=== PATIENT | female | born 1940 | race Caucasian/White ===

== ENCOUNTER 2016-10-31 09:09 | Day surgery (SDC) | payer MEDICARE, OTHER ==
[2016-10-30 15:41] LABS: Hematocrit 43.7 % (36.0-46.0); Hemoglobin 14.6 g/dL (12.2-16.2); Mean Corpuscular Hemoglobin 31.9 pg (28.0-32.0); Mean Corpuscular Hgb Conc. 33.4 g/dL (32.0-36.0); Mean Corpuscular Volume 95.3 fL (80.0-100.0); Mean Platelet Volume 9.6 fL (7.4-10.4); Platelet Count (auto) 240 10^3/uL (140-450); Red Cell Distribution Width 14.1 % (11.6-16.0); SUSPECT VIEW TRANSMISSION; White Blood Cell 4.7 10^3/uL (4.4-10.8)
[2016-10-30 15:45] LABS: Urine Bilirubin Negative (Negative); Urine Color Yellow (Yellow); Urine Glucose Normal (Normal); Urine Ketone Negative (Negative); Urine Nitrite Negative (Negative); Urine RBC 135 /hpf (0 - 4); Urine Squamous Epithelial Cell MOD /hpf (<5); Urine Urobilinogen Normal (Negative); Urine WBC Clumps PRESENT /hpf (None Seen)
[2016-10-30 16:09] LABS: Albumin 3.6 g/dL (3.4-5.0); BUN/Creatinine Ratio 11.8; Bilirubin, Total 0.5 mg/dL (0.2-1.0); Calcium 9.3 mg/dL (8.5-10.1); Potassium 3.5 mmol/L (3.5-5.1)
[2016-10-30 16:15] LABS: Metamyelocytes % 0; Myelocytes % 0; Promyelocytes % 0; Reactive Lymphocytes 0
[2016-10-30 16:21] LABS: Urine Blood 2+ /uL (Negative)
[2016-10-30 16:24] LABS: INR 1.04 (0.9-1.15); Partial Thromboplastin Time 28.2 sec (22.64-33.71); Prothrombin Time 11.2 sec (9.37-12.3)
[2016-10-30 16:56] LABS: Giant Platelets Few; Large Platelets FEW
[2016-10-30 16:57] LABS: Platelet Estimate Adequa
[~2016-10-31] VITALS: Ht 165.1 cm; Wt 110.2 kg
[~2016-10-31 09:09] MED LIST: ASPI-231 PO; FLUT100I IN; FURO80TA3 PO; HYDR-531 PO; MELO-86 PO; MET50T PO; MORP30TA PO; MULTTAB99 PO; VENL75TA43 PO; ZOLP10TA PO
[2016-10-31] MEDS ORDERED: ceFAZolin 1GM/50ML D5W 50 ML IV ONE (09:34)
[2016-10-31] MEDS ORDERED: fentaNYL CITRATE 100 MCG/2 ML VL ONE (11:10)
[2016-10-31] MEDS ORDERED: MIDAZOLAM HCL 1MG/1ML-2 ML VIAL ONE (11:10)
[2016-10-31] MEDS ORDERED: DEXAMETHASONE SOD PHOS 10MG/1ML VIAL INJ ONE (11:45)
[2016-10-31] MEDS ORDERED: MIDAZOLAM HCL 1MG/1ML-2 ML VIAL IV PRN (11:45)
[2016-10-31] MEDS ORDERED: MORPHINE SULF INJ 2 MG/ML SYRINGE 1ML IV PRN (11:45)
[2016-10-31] MEDS ORDERED: ePHEDrine SULFATE 50 MG/ML AMP IV PRN (11:45)
[2016-10-31] MEDS ORDERED: PROPOFOL 10 MG/ML 20 ML IV ONE (11:45)
[2016-10-31] MEDS ORDERED: LABETALOL HCL 5 MG/ML 4ML SYRINGE IV PRN (11:45)
[2016-10-31] MEDS ORDERED: ONDANSETRON HCL 4 MG/2 ML VIAL IV ONE (11:45)
[2016-10-31] MEDS ORDERED: KETOROLAC TROMETH 30 MG/ML 1ML VIAL IV ONE (11:45)
[2016-10-31] MEDS ORDERED: HYDROmorphone HCL 2 MG/ML VL IV PRN (11:45)
[2016-10-31 12:36] VITALS: BP 134/59
== END 2016-10-31 12:38 | disposition home or self-care (01) ==
LOC: SUR 09:09
PROVIDERS: ATTEND Urology
DX: N20.1 Calculus of ureter (principal); J44.9 Chronic obstructive pulmonary disease, unspecified; J43.9 Emphysema, unspecified; I48.91 Unspecified atrial fibrillation; I25.10 Atherosclerotic heart disease of native coronary artery without angina pectoris; E66.01 Morbid (severe) obesity due to excess calories; Z68.41 Body mass index [BMI] 40.0-44.9, adult; Z90.49 Acquired absence of other specified parts of digestive tract
CPT/HCPCS: 36415; 50590; 52310; 80053; 81001; 85007; 85027; 85610; 85730; J0690; J1100; J2250; J2704; J3010; J7030

== ENCOUNTER → 2018-05-09 | Outpatient (CLI) | payer MEDICARE, OTHER ==
[~2018-05-09] MED LIST changes: -MELO-86 PO; +MELO1TAB56 PO
[2018-05-09 11:57] LABS: Hematocrit 40.4 % (36.0-46.0); Hemoglobin 13.6 g/dL (12.2-16.2); Mean Corpuscular Hemoglobin 31.7 pg (28.0-32.0); Mean Corpuscular Hgb Conc. 33.6 g/dL (32.0-36.0); Mean Corpuscular Volume 94.4 fL (80.0-100.0); Platelet Count (auto) 163 10^3/uL (140-450); Red Blood Cells 4.28 10^6/uL (4.0-5.20); Red Cell Distribution Width 13.8 % (11.8-14.3); Urine Bacteria FEW /hpf (None Seen); Urine Blood Negative /uL (Negative); Urine Specific Gravity 1.011 (1.001-1.035); Urine WBC 32 /hpf (0 - 5); White Blood Cell 4.6 10^3/uL (4.4-10.8)
[2018-05-09 12:09] LABS: Albumin 3.6 g/dL (3.4-5.0); Calcium 8.7 mg/dL (8.5-10.1); Potassium 3.6 mmol/L (3.5-5.1)
[2018-05-09 12:11] LABS: Band Neutrophils % (manual) 0; Basophils % (manual) 0 (0.0-2.0); Blast Cells 0; Eosinophils % (manual) 0 (0-7); Metamyelocytes % 0; Myelocytes % 0; Promyelocytes % 0; Reactive Lymphocytes 0
[2018-05-09 12:13] LABS: Bilirubin, Total 0.3 mg/dL (0.2-1.0); Total Protein 7.7 g/dL (6.4-8.2)
[2018-05-09 12:35] LABS: Lymphocytes % (manual) 41 (10.0-50.0); Monocytes % (manual) 16 (0-12)
== END | disposition home or self-care (01) ==
LOC: LAB 11:20
PROVIDERS: ATTEND Nurse Practitioner
DX: I10 Essential (primary) hypertension (principal); Z79.899 Other long term (current) drug therapy
CPT/HCPCS: 36415; 80053; 80061; 81001; 85007; 85027

== ENCOUNTER 2021-04-04 20:21 | Inpatient (IN) | payer MEDICARE, OTHER ==
[~2021-04-04] VITALS: Ht 170.2 cm; Wt 98.3 kg
[~2021-04-04 20:21] MED LIST changes: -ASPI-231 PO; +ASPI1TAB20 PO
[2021-04-04] MEDS ORDERED: dilTIAZem 25 MG/5 ML VIAL IV ONE (21:15)
[2021-04-04] MEDS ORDERED: dilTIAZem 125mg/125ml BAG KIT 125 ML IV ONE (21:15)
[2021-04-04 21:24] LABS: Hematocrit 47.8 % (36.0-46.0); Hemoglobin 16.2 g/dL (12.2-16.2); Mean Corpuscular Hemoglobin 30.8 pg (28.0-32.0); Mean Corpuscular Volume 90.8 fL (80.0-100.0); Red Blood Cells 5.26 10^6/uL (4.0-5.20); Red Cell Distribution Width 14.2 % (11.8-14.3); White Blood Cell 4.2 10^3/uL (4.4-10.8)
[2021-04-04 21:33] LABS: Basophils % (manual) 0 (0.0-2.0); Blast Cells 0; Eosinophils % (manual) 0 (0-7); Metamyelocytes % 0; Myelocytes % 0; Promyelocytes % 0; Reactive Lymphocytes 0
[2021-04-04 21:36] LABS: Albumin 3.1 g/dL (3.4-5.0); Anion Gap 11 (5-15); Blood Urea Nitrogen 16 mg/dL (7-18); Calcium 8.8 mg/dL (8.5-10.1); Carbon Dioxide 24 mmol/L (21-32); Chloride 96 mmol/L (98-107); Glucose 118 mg/dL (74-106); Sodium 131 mmol/L (136-145)
[2021-04-04 21:39] LABS: Alanine Aminotransferase 18 U/L (13-56); Alkaline Phosphatase 49 U/L (45-117); Aspartate Aminotransferase 30 U/L (15-37); BUN/Creatinine Ratio 17.4; Bilirubin, Total 0.4 mg/dL (0.2-1.0); GFR African American 75 mL/min; GFR Non-African American 62 mL/min; Total Protein 8.1 g/dL (6.4-8.2)
[2021-04-04 21:41] LABS: INR 1.09 (0.9-1.15); Partial Thromboplastin Time 28.8 sec (23.6-33.0)
[2021-04-04 22:09] LABS: Potassium 2.6 mmol/L (3.5-5.1)
[2021-04-04] MEDS ORDERED: MORPHINE SULFATE INJECTION 2 MG/ML SYRG IV PRN (22:15)
[2021-04-04] MEDS ORDERED: ACETAMINOPHEN 325 MG TAB PO PRN (22:15)
[2021-04-04] MEDS ORDERED: NITROGLYCERIN 0.4 MG SL TAB SL PRN (22:15)
[2021-04-04 22:40] LABS: Band Neutrophils % (manual) 19; Lymphocytes % (manual) 11 (10.0-50.0)
[2021-04-04 22:41] LABS: Monocytes % (manual) 51 (0-12)
[2021-04-04] MEDS ORDERED: POTASSIUM CHL 20MEQ/100ML 100 ML IV ONE (22:45)
[2021-04-04] MEDS ORDERED: POTASSIUM CHL 20 Meq TABLET PO ONE (23:00)
[2021-04-04 23:23] LABS: Urine Bacteria MANY /hpf (None Seen); Urine Blood 2+ /uL (Negative); Urine Mucus FEW (None Seen); Urine Specific Gravity 1.016 (1.001-1.035); Urine WBC 126 /hpf (0 - 5); Urine WBC Clumps PRESENT /hpf (None Seen)
[2021-04-05] MEDS: dilTIAZem 125mg/125ml BAG KIT 125 ML IV SCH ×5 (02:07→04:53)
[2021-04-05] MEDS: HYDROcodone-ACET 5/325MG TAB PO PRN ×5 (02:13→22:13)
[2021-04-05] MEDS: cefTRIAXone 1GM/50ML D5W 50 ML IV SCH (03:00)
[2021-04-05 04:56] LABS: Hematocrit 46.8 % (36.0-46.0); Mean Corpuscular Hemoglobin 30.9 pg (28.0-32.0); Mean Corpuscular Hgb Conc. 34.1 g/dL (32.0-36.0); Mean Corpuscular Volume 90.5 fL (80.0-100.0); Red Blood Cells 5.17 10^6/uL (4.0-5.20); Red Cell Distribution Width 14.2 % (11.8-14.3); White Blood Cell 3.7 10^3/uL (4.4-10.8)
[2021-04-05 05:13] LABS: BUN/Creatinine Ratio 23.5; Calcium 8.3 mg/dL (8.5-10.1)
[2021-04-05 05:14] LABS: Basophils % (manual) 0 (0.0-2.0); Blast Cells 0; Eosinophils % (manual) 0 (0-7); Myelocytes % 0; Promyelocytes % 0; Reactive Lymphocytes 0
[2021-04-05 05:26] LABS: Potassium 2.3 mmol/L (3.5-5.1)
[2021-04-05] MEDS: POTASSIUM CHL 20 Meq TABLET PO ONE ×2 (05:38→05:39)
[2021-04-05 08:41] LABS: Band Neutrophils % (manual) 17; Lymphocytes % (manual) 23 (10.0-50.0); Metamyelocytes % 2; Monocytes % (manual) 32 (0-12)
[2021-04-05] MEDS ORDERED: ZINC SULFATE 220mg CAP or TAB PO SCH (10:00)
[2021-04-05] MEDS: POTASSIUM EFFERVESENT TAB 25 MEQ PO SCH (10:00)
[2021-04-05] MEDS ORDERED: SOD CHL 0.45% WITH 20MEQ KCL 1,000 ML IV ONE (10:00)
[2021-04-05] MEDS: ONDANSETRON HCL 4 MG/2 ML VIAL IV PRN ×4 (10:15→22:13)
[2021-04-05] MEDS ORDERED: OXYB10TA14 PO (10:20)
[2021-04-05] MEDS: ASPirin 81 mg TAB PO SCH (10:57)
[2021-04-05] MEDS: METOPROLOL TARTRATE 50 MG TAB PO SCH ×2 (10:58→20:40)
[2021-04-05] MEDS: PANTOPRAZOLE 40 MG TAB PO SCH (10:59)
[2021-04-05] MEDS: ENOXAPARIN SOD 40 MG/0.4 ML SYRINGE SC SCH (10:59)
[2021-04-05] MEDS: ASCORBIC ACID 500 MG TAB PO SCH (10:59)
[2021-04-05] MEDS ORDERED: ALBUTEROL SULF HFA 90MCG INH 200DOSE IN PRN (11:00)
[2021-04-05] MEDS ORDERED: REMDESIVIR PER PHARMACY 0 ML IV SCH (11:00)
[2021-04-05 11:40] LABS: Hematocrit 47.6 % (36.0-46.0); Hemoglobin 16.4 g/dL (12.2-16.2); Mean Corpuscular Hemoglobin 31.4 pg (28.0-32.0); Mean Corpuscular Hgb Conc. 34.5 g/dL (32.0-36.0); Mean Corpuscular Volume 91.2 fL (80.0-100.0); Red Blood Cells 5.22 10^6/uL (4.0-5.20); Red Cell Distribution Width 14.3 % (11.8-14.3); White Blood Cell 3.4 10^3/uL (4.4-10.8)
[2021-04-05] MEDS: DexAMETHasone SOD PHOS 10MG/1ML VIAL INJ IV SCH (11:45)
[2021-04-05 11:46] LABS: Basophils % (manual) 0 (0.0-2.0); Blast Cells 0; Metamyelocytes % 0; Myelocytes % 0; Promyelocytes % 0; Reactive Lymphocytes 0
[2021-04-05 11:53] LABS: Albumin 2.8 g/dL (3.4-5.0); Calcium 8.4 mg/dL (8.5-10.1); Magnesium 2.3 mg/dL (1.6-2.6)
[2021-04-05 11:58] LABS: Bilirubin, Total 0.5 mg/dL (0.2-1.0); Total Protein 7.8 g/dL (6.4-8.2)
[2021-04-05] MEDS: DOXYCYCLINE 100 MG TAB/CAP PO SCH ×2 (12:00→20:41)
[2021-04-05] MEDS ORDERED: REMDESIVIR 200 MG in NS 210ml LOADING DOSE ADULT IV ONE (12:00)
[2021-04-05] MEDS: CHOLECALCIFEROL (VITD3) 2,000 UNIT CAP/TAB PO SCH (12:00)
[2021-04-05 12:04] LABS: Thyroid Stimulating Hormone 0.73 uIU/mL (0.358-3.74)
[2021-04-05 12:24] LABS: Band Neutrophils % (manual) 4; Eosinophils % (manual) 2 (0-7); Lymphocytes % (manual) 21 (10.0-50.0); Monocytes % (manual) 35 (0-12)
[2021-04-05] MEDS: POTASSIUM CHL 20MEQ/100ML 100 ML IV SCH ×5 (12:35→19:00)
[2021-04-05 12:36] LABS: Urine Bacteria MANY /hpf (None Seen); Urine Blood 2+ /uL (Negative); Urine Budding Yeast FEW /hpf (None Seen); Urine Specific Gravity 1.009 (1.001-1.035); Urine WBC 72 /hpf (0 - 5)
[2021-04-05 12:38] LABS: Potassium 2.7 mmol/L (3.5-5.1)
[2021-04-05 12:59] LABS: CRP High Sensitivity 1.74 mg/dL (< 0.3)
[2021-04-06] MEDS: HYDROcodone-ACET 5/325MG TAB PO PRN ×5 (02:15→19:42)
[2021-04-06 05:00] VITALS: BP 138/69
[2021-04-06 06:50] LABS: Albumin 2.6 g/dL (3.4-5.0); Calcium 8.5 mg/dL (8.5-10.1); Potassium 3.7 mmol/L (3.5-5.1)
[2021-04-06 06:59] LABS: Hematocrit 45.5 % (36.0-46.0); Hemoglobin 15.2 g/dL (12.2-16.2); Mean Corpuscular Hemoglobin 30.6 pg (28.0-32.0); Mean Corpuscular Hgb Conc. 33.4 g/dL (32.0-36.0); Mean Corpuscular Volume 91.5 fL (80.0-100.0); Red Blood Cells 4.98 10^6/uL (4.0-5.20); Red Cell Distribution Width 14.1 % (11.8-14.3); White Blood Cell 2.6 10^3/uL (4.4-10.8)
[2021-04-06 07:03] LABS: Bilirubin, Total 0.4 mg/dL (0.2-1.0); Total Protein 7.2 g/dL (6.4-8.2)
[2021-04-06 07:20] LABS: Basophils % (manual) 0 (0.0-2.0); Blast Cells 0; Eosinophils % (manual) 0 (0-7); Metamyelocytes % 0; Myelocytes % 0; Promyelocytes % 0
[2021-04-06 09:00] VITALS: BP 140/70
[2021-04-06] MEDS: ASPirin 81 mg TAB PO SCH (09:56)
[2021-04-06] MEDS: ZINC SULFATE 220mg CAP or TAB PO SCH (09:56)
[2021-04-06] MEDS: cefTRIAXone 1GM/50ML D5W 50 ML IV SCH (09:56)
[2021-04-06] MEDS: DexAMETHasone SOD PHOS 10MG/1ML VIAL INJ IV SCH (09:56)
[2021-04-06] MEDS: POTASSIUM EFFERVESENT TAB 25 MEQ PO SCH ×2 (09:57→10:00)
[2021-04-06] MEDS: PANTOPRAZOLE 40 MG TAB PO SCH (09:57)
[2021-04-06] MEDS: METOPROLOL TARTRATE 50 MG TAB PO SCH ×2 (09:57→21:54)
[2021-04-06] MEDS: DOXYCYCLINE 100 MG TAB/CAP PO SCH ×2 (09:58→21:54)
[2021-04-06] MEDS: ENOXAPARIN SOD 40 MG/0.4 ML SYRINGE SC SCH (09:58)
[2021-04-06] MEDS: CHOLECALCIFEROL (VITD3) 2,000 UNIT CAP/TAB PO SCH (09:58)
[2021-04-06] MEDS: ASCORBIC ACID 500 MG TAB PO SCH (09:58)
[2021-04-06 10:24] LABS: Band Neutrophils % (manual) 1; Lymphocytes % (manual) 13 (10.0-50.0); Monocytes % (manual) 27 (0-12); Reactive Lymphocytes 1
[2021-04-06] MEDS ORDERED: DIGOXIN (250MCG/ML) 2 ML AMPULE IV ONE (11:30)
[2021-04-06 13:00] VITALS: BP 151/83
[2021-04-06] MEDS: REMDESIVIR 100mg 100 MG in SODIUM CHL 0.9% 230 ML IV SCH (15:54)
[2021-04-06 17:03] VITALS: BP_SYST 121; BP_SYST 145; BP_DIAS 72
[2021-04-06] MEDS: MORPHINE SULF 30 mg ER tab PO SCH (21:54)
[2021-04-06 22:00] VITALS: BP 138/83
[2021-04-06] MEDS: ZOLPIDEM TARTRATE 5 MG TAB PO PRN (23:22)
[2021-04-07 05:00] VITALS: BP 140/76
[2021-04-07 06:19] LABS: Hematocrit 42.2 % (36.0-46.0); Hemoglobin 14.3 g/dL (12.2-16.2); Mean Corpuscular Hemoglobin 31.3 pg (28.0-32.0); Mean Corpuscular Volume 91.9 fL (80.0-100.0); Red Blood Cells 4.59 10^6/uL (4.0-5.20); White Blood Cell 8.1 10^3/uL (4.4-10.8)
[2021-04-07 06:59] LABS: BUN/Creatinine Ratio 28.3; Calcium 8.5 mg/dL (8.5-10.1)
[2021-04-07 07:22] LABS: Basophils % (manual) 0 (0.0-2.0); Blast Cells 0; Eosinophils % (manual) 0 (0-7); Metamyelocytes % 0; Promyelocytes % 0; Reactive Lymphocytes 0
[2021-04-07 07:33] LABS: Potassium 3.4 mmol/L (3.5-5.1)
[2021-04-07 08:00] VITALS: BP 133/61
[2021-04-07] MEDS: cefTRIAXone 1GM/50ML D5W 50 ML IV SCH (09:15)
[2021-04-07] MEDS: DexAMETHasone SOD PHOS 10MG/1ML VIAL INJ IV SCH (09:15)
[2021-04-07] MEDS: ASPirin 81 mg TAB PO SCH (09:16)
[2021-04-07] MEDS: ZINC SULFATE 220mg CAP or TAB PO SCH (09:16)
[2021-04-07] MEDS: CHOLECALCIFEROL (VITD3) 2,000 UNIT CAP/TAB PO SCH (09:17)
[2021-04-07] MEDS: DOXYCYCLINE 100 MG TAB/CAP PO SCH ×2 (09:17→22:58)
[2021-04-07] MEDS: POTASSIUM EFFERVESENT TAB 25 MEQ PO SCH (09:17)
[2021-04-07] MEDS: ASCORBIC ACID 500 MG TAB PO SCH (09:18)
[2021-04-07] MEDS: ENOXAPARIN SOD 40 MG/0.4 ML SYRINGE SC SCH (09:18)
[2021-04-07] MEDS: MORPHINE SULF 30 mg ER tab PO SCH ×2 (09:53→22:58)
[2021-04-07 11:05] LABS: Band Neutrophils % (manual) 9; Lymphocytes % (manual) 7 (10.0-50.0)
[2021-04-07 11:06] LABS: Monocytes % (manual) 21 (0-12); Myelocytes % 1
[2021-04-07] MEDS: HYDROcodone-ACET 5/325MG TAB PO PRN ×2 (12:48→20:28)
[2021-04-07 13:00] VITALS: BP 158/77
[2021-04-07] MEDS ORDERED: LABETALOL HCL 5 MG/ML 4ML SYRINGE IV ONE (14:21)
[2021-04-07] MEDS: REMDESIVIR 100mg 100 MG in SODIUM CHL 0.9% 230 ML IV SCH (15:44)
[2021-04-07 17:00] VITALS: BP 150/70
[2021-04-07] MEDS ORDERED: hydrALAZINE HCL 20 MG/ML VL ONE (17:13)
[2021-04-07 21:44] VITALS: BP 149/55
[2021-04-07] MEDS: ZOLPIDEM TARTRATE 5 MG TAB PO PRN (23:20)
[2021-04-08 05:23] VITALS: BP 143/66
[2021-04-08] MEDS: cefTRIAXone 1GM/50ML D5W 50 ML IV SCH (08:28)
[2021-04-08] MEDS: DexAMETHasone SOD PHOS 10MG/1ML VIAL INJ IV SCH (08:29)
[2021-04-08] MEDS: ASPirin 81 mg TAB PO SCH (08:29)
[2021-04-08] MEDS: POTASSIUM EFFERVESENT TAB 25 MEQ PO SCH (08:33)
[2021-04-08] MEDS: ZINC SULFATE 220mg CAP or TAB PO SCH (08:33)
[2021-04-08] MEDS: CHOLECALCIFEROL (VITD3) 2,000 UNIT CAP/TAB PO SCH (08:34)
[2021-04-08] MEDS: ENOXAPARIN SOD 40 MG/0.4 ML SYRINGE SC SCH (08:34)
[2021-04-08] MEDS: ASCORBIC ACID 500 MG TAB PO SCH (08:34)
[2021-04-08] MEDS: MORPHINE SULF 30 mg ER tab PO SCH ×2 (08:59→22:50)
[2021-04-08 09:00] VITALS: BP 138/71
[2021-04-08] MEDS: HYDROcodone-ACET 5/325MG TAB PO PRN ×3 (11:31→21:40)
[2021-04-08] MEDS ORDERED: POTASSIUM EFFERVESENT TAB 25 MEQ GT ONE (12:30)
[2021-04-08] MEDS: DOXYCYCLINE 100 MG TAB/CAP PO SCH ×2 (12:37→22:50)
[2021-04-08 13:00] VITALS: BP 133/76
[2021-04-08] MEDS ORDERED: POTASSIUM EFFERVESENT TAB 25 MEQ PO ONE (13:00)
[2021-04-08] MEDS: REMDESIVIR 100mg 100 MG in SODIUM CHL 0.9% 230 ML IV SCH (14:51)
[2021-04-08 17:10] VITALS: BP 140/80
[2021-04-08] MEDS: RIVAROXABAN 20 MG TAB PO SCH (17:41)
[2021-04-08 22:00] VITALS: BP 160/60
[2021-04-09 05:00] VITALS: BP 154/77
[2021-04-09 06:43] LABS: Hematocrit 42.9 % (36.0-46.0); Hemoglobin 14.5 g/dL (12.2-16.2); Mean Corpuscular Hemoglobin 31.3 pg (28.0-32.0); Mean Corpuscular Hgb Conc. 33.8 g/dL (32.0-36.0); Mean Corpuscular Volume 92.5 fL (80.0-100.0); Red Blood Cells 4.64 10^6/uL (4.0-5.20); Red Cell Distribution Width 14.7 % (11.8-14.3); White Blood Cell 8.7 10^3/uL (4.4-10.8)
[2021-04-09 06:52] LABS: Albumin 2.4 g/dL (3.4-5.0); Calcium 8.4 mg/dL (8.5-10.1); Potassium 4.6 mmol/L (3.5-5.1)
[2021-04-09 06:55] LABS: BUN/Creatinine Ratio 32.7; Bilirubin, Total 0.3 mg/dL (0.2-1.0); Total Protein 6.4 g/dL (6.4-8.2)
[2021-04-09] MEDS: HYDROcodone-ACET 5/325MG TAB PO PRN ×3 (06:55→19:56)
[2021-04-09 06:59] LABS: Basophils % (manual) 0 (0.0-2.0); Blast Cells 0; Eosinophils % (manual) 0 (0-7); Monocytes % (manual) 0 (0-12); Myelocytes % 0; Promyelocytes % 0; Reactive Lymphocytes 0
[2021-04-09 09:13] VITALS: BP 130/70
[2021-04-09] MEDS: cefTRIAXone 1GM/50ML D5W 50 ML IV SCH (09:21)
[2021-04-09] MEDS: DexAMETHasone SOD PHOS 10MG/1ML VIAL INJ IV SCH (09:22)
[2021-04-09] MEDS: ZINC SULFATE 220mg CAP or TAB PO SCH (09:22)
[2021-04-09] MEDS: MORPHINE SULF 30 mg ER tab PO SCH ×2 (09:22→22:03)
[2021-04-09] MEDS: CHOLECALCIFEROL (VITD3) 2,000 UNIT CAP/TAB PO SCH (09:22)
[2021-04-09] MEDS: ASPirin 81 mg TAB PO SCH (09:22)
[2021-04-09] MEDS: POTASSIUM EFFERVESENT TAB 25 MEQ PO SCH (09:22)
[2021-04-09] MEDS: DOXYCYCLINE 100 MG TAB/CAP PO SCH ×2 (09:23→22:03)
[2021-04-09] MEDS: ASCORBIC ACID 500 MG TAB PO SCH (09:23)
[2021-04-09 10:27] LABS: Band Neutrophils % (manual) 6; Lymphocytes % (manual) 15 (10.0-50.0); Metamyelocytes % 1
[2021-04-09 13:04] VITALS: BP 149/79
[2021-04-09] MEDS: REMDESIVIR 100mg 100 MG in SODIUM CHL 0.9% 230 ML IV SCH (15:20)
[2021-04-09 17:22] VITALS: BP 150/76
[2021-04-09] MEDS: RIVAROXABAN 20 MG TAB PO SCH (18:22)
[2021-04-09 22:00] VITALS: BP 147/76
[2021-04-09] MEDS: ZOLPIDEM TARTRATE 5 MG TAB PO PRN (23:48)
[2021-04-10 05:00] VITALS: BP 138/92
[2021-04-10] MEDS: HYDROcodone-ACET 5/325MG TAB PO PRN ×4 (05:01→20:13)
[2021-04-10 07:09] LABS: Potassium 4.6 mmol/L (3.5-5.1)
[2021-04-10] MEDS: cefTRIAXone 1GM/50ML D5W 50 ML IV SCH (08:41)
[2021-04-10 09:00] VITALS: BP 122/75
[2021-04-10] MEDS: ZINC SULFATE 220mg CAP or TAB PO SCH (09:15)
[2021-04-10] MEDS: DOXYCYCLINE 100 MG TAB/CAP PO SCH (09:16)
[2021-04-10] MEDS: ASCORBIC ACID 500 MG TAB PO SCH (09:16)
[2021-04-10] MEDS: ASPirin 81 mg TAB PO SCH (09:16)
[2021-04-10] MEDS: DexAMETHasone SOD PHOS 10MG/1ML VIAL INJ IV SCH (09:16)
[2021-04-10] MEDS: CHOLECALCIFEROL (VITD3) 2,000 UNIT CAP/TAB PO SCH (09:16)
[2021-04-10] MEDS: MORPHINE SULF 30 mg ER tab PO SCH ×2 (09:17→23:24)
[2021-04-10 12:46] VITALS: BP 143/82
[2021-04-10 16:51] VITALS: BP 142/74
[2021-04-10] MEDS: RIVAROXABAN 20 MG TAB PO SCH (17:59)
[2021-04-10 22:00] VITALS: BP 145/74
[2021-04-10] MEDS: ZOLPIDEM TARTRATE 5 MG TAB PO PRN (23:26)
[2021-04-11] MEDS: HYDROcodone-ACET 5/325MG TAB PO PRN ×3 (04:55→20:33)
[2021-04-11 05:12] VITALS: BP 153/85
[2021-04-11 09:00] VITALS: BP 139/70
[2021-04-11] MEDS: ZINC SULFATE 220mg CAP or TAB PO SCH (09:33)
[2021-04-11] MEDS: ASPirin 81 mg TAB PO SCH (09:33)
[2021-04-11] MEDS: MORPHINE SULF 30 mg ER tab PO SCH ×2 (09:33→23:18)
[2021-04-11] MEDS: DexAMETHasone SOD PHOS 10MG/1ML VIAL INJ IV SCH (09:33)
[2021-04-11] MEDS: cefTRIAXone 1GM/50ML D5W 50 ML IV SCH (09:33)
[2021-04-11] MEDS: ASCORBIC ACID 500 MG TAB PO SCH (09:34)
[2021-04-11] MEDS: CHOLECALCIFEROL (VITD3) 2,000 UNIT CAP/TAB PO SCH (09:34)
[2021-04-11] MEDS ORDERED: ASCO500T11 PO (12:46)
[2021-04-11] MEDS ORDERED: CHOL1CAP47 PO (12:46)
[2021-04-11] MEDS ORDERED: RIV20T PO (12:46)
[2021-04-11 14:06] VITALS: BP 144/65
[2021-04-11 17:00] VITALS: BP 133/73
[2021-04-11] MEDS: RIVAROXABAN 20 MG TAB PO SCH (18:02)
[2021-04-11 22:00] VITALS: BP 151/82
[2021-04-11] MEDS: ZOLPIDEM TARTRATE 5 MG TAB PO PRN (23:18)
[2021-04-12 05:00] VITALS: BP 128/85
[2021-04-12] MEDS: HYDROcodone-ACET 5/325MG TAB PO PRN ×3 (05:30→18:19)
[2021-04-12 09:00] VITALS: BP 143/73
[2021-04-12] MEDS: cefTRIAXone 1GM/50ML D5W 50 ML IV SCH (09:30)
[2021-04-12] MEDS: DexAMETHasone SOD PHOS 10MG/1ML VIAL INJ IV SCH (09:30)
[2021-04-12] MEDS: CHOLECALCIFEROL (VITD3) 2,000 UNIT CAP/TAB PO SCH (09:31)
[2021-04-12] MEDS: ASPirin 81 mg TAB PO SCH (09:31)
[2021-04-12] MEDS: ASCORBIC ACID 500 MG TAB PO SCH (09:31)
[2021-04-12] MEDS: ZINC SULFATE 220mg CAP or TAB PO SCH (09:31)
[2021-04-12] MEDS: MORPHINE SULF 30 mg ER tab PO SCH (10:00)
[2021-04-12 13:00] VITALS: BP 136/65
[2021-04-12 15:20] VITALS: BP 147/83
[2021-04-12 17:00] VITALS: BP 152/77
[2021-04-12] MEDS: RIVAROXABAN 20 MG TAB PO SCH (18:18)
== END 2021-04-12 20:30 | disposition home health service (06) | DRG 177 ==
LOC: EDBD 20:21 → ER 20:22 → TELE 22:04 → OVERFLOW 04-05 02:44 → TELE-EAST 04-05 23:11
PROVIDERS: ADMIT Nurse Practitioner; ATTEND Internal Medicine Pulmonary Disease
PROC: 05HD33Z Insertion of Infusion Device into Right Cephalic Vein, Percutaneous Approach (ICD-10-PCS; 2021-04-04)
PROC: B54MZZA Ultrasonography of Right Upper Extremity Veins, Guidance (ICD-10-PCS; 2021-04-04)
PROC: XW033E5 Introduction of Remdesivir Anti-infective into Peripheral Vein, Percutaneous Approach, New Technology Group 5 (ICD-10-PCS; principal; 2021-04-05)
DX: U07.1 COVID-19 (principal); J96.01 Acute respiratory failure with hypoxia; J12.82 Pneumonia due to coronavirus disease 2019; E87.1 Hypo-osmolality and hyponatremia; N39.0 Urinary tract infection, site not specified; R29.6 Repeated falls; E87.6 Hypokalemia; E87.8 Other disorders of electrolyte and fluid balance, not elsewhere classified; R00.1 Bradycardia, unspecified; R04.0 Epistaxis; I10 Essential (primary) hypertension; D69.6 Thrombocytopenia, unspecified; E55.9 Vitamin D deficiency, unspecified; E78.5 Hyperlipidemia, unspecified; I48.91 Unspecified atrial fibrillation; Z87.442 Personal history of urinary calculi; Z91.041 Radiographic dye allergy status; Z90.710 Acquired absence of both cervix and uterus
CPT/HCPCS: 36415; 36600; 70450; 71045; 72125; 80048; 80053; 81001; 82306; 82728; 82805; 83036; 83605; 83615; 83735; 84132; 84443; 84484; 85007; 85027; 85379; 85610; 85730; 86141; 86850; 86900; 86901; 87426; 93005; 93306; 93970; 96365; 96366; 96375; 97116; 97530; 99291; G0378; J0696; J1100; J2405; J3480; J3490

== ENCOUNTER 2021-11-23 18:56 | Emergency (ER) | payer MEDICARE, OTHER ==
[~2021-11-23] VITALS: Ht 162.6 cm; Wt 90.7 kg
[~2021-11-23 18:56] MED LIST changes: +ASCO500T11 PO; -ASPI1TAB20 PO; +CHOL1CAP47 PO; -FLUT100I IN; -FURO80TA3 PO; -MET50T PO; -MULTTAB99 PO; +OXYB10TA14 PO; +RIV20T PO; -VENL75TA43 PO
[2021-11-24] MEDS ORDERED: TETANUS-DIPTH-ACEL PERTUSSIS 0.5ML SYR Tdap IM ONE
[2021-11-24 01:00] VITALS: BP 151/82
[2021-11-24 04:21] LABS: Urine Bacteria NONE SEEN /hpf (None Seen); Urine Blood 1+ /uL (Negative); Urine Specific Gravity 1.009 (1.001-1.035); Urine WBC 2 /hpf (0 - 5)
== END 2021-11-24 00:23 | disposition home or self-care (01) ==
LOC: ER 18:56
DX: S40.811A Abrasion of right upper arm, initial encounter (principal); Z87.442 Personal history of urinary calculi; Z90.710 Acquired absence of both cervix and uterus; Y08.89XA Assault by other specified means, initial encounter; Y93.89 Activity, other specified; Y92.89 Other specified places as the place of occurrence of the external cause; Y99.8 Other external cause status
CPT/HCPCS: 81001; 90471; 90715

== ENCOUNTER → 2022-08-22 | Outpatient (CLI) | payer MEDICARE, OTHER ==
[2022-08-22 15:31] LABS: Hematocrit 42.4 % (36.0-46.0); Hemoglobin 14.6 g/dL (12.2-16.2); Mean Corpuscular Hemoglobin 31.5 pg (28.0-32.0); Mean Corpuscular Hgb Conc. 34.4 g/dL (32.0-36.0); Mean Corpuscular Volume 91.4 fL (80.0-100.0); Red Blood Cells 4.63 10^6/uL (4.0-5.20); Red Cell Distribution Width 14.3 % (11.8-14.3); White Blood Cell 5.5 10^3/uL (4.4-10.8)
[2022-08-22 15:33] LABS: Basophils % (manual) 0 (0.0-2.0); Blast Cells 0; Eosinophils % (manual) 0 (0-7); Myelocytes % 0; Promyelocytes % 0; Reactive Lymphocytes 0
[2022-08-22 15:40] LABS: Urine Bacteria NONE SEEN /hpf (None Seen); Urine Blood Negative /uL (Negative); Urine Hyaline Cast FEW /lpf (0 - 2); Urine Specific Gravity 1.005 (1.001-1.035); Urine WBC 9 /hpf (0 - 5)
[2022-08-22 16:16] LABS: Albumin 3.6 g/dL (3.4-5.0); Calcium 8.7 mg/dL (8.5-10.1); Potassium 3.5 mmol/L (3.5-5.1)
[2022-08-22 16:29] LABS: BUN/Creatinine Ratio 14.8; Bilirubin, Total 0.4 mg/dL (0.2-1.0)
[2022-08-22 18:03] LABS: Band Neutrophils % (manual) 8; Lymphocytes % (manual) 18 (10.0-50.0); Monocytes % (manual) 21 (0-12)
[2022-08-22 18:04] LABS: Metamyelocytes % 1
== END | disposition home or self-care (01) ==
LOC: LAB 15:12
PROVIDERS: ATTEND Internal Medicine
DX: Z12.11 Encounter for screening for malignant neoplasm of colon (principal); I50.32 Chronic diastolic (congestive) heart failure; E55.9 Vitamin D deficiency, unspecified; N30.90 Cystitis, unspecified without hematuria; R73.03 Prediabetes; D64.9 Anemia, unspecified
CPT/HCPCS: 36415; 80053; 80061; 81001; 82306; 83036; 84443; 85007; 85027; 85652; 87086; 87088; 87186

== ENCOUNTER → 2022-08-30 | Outpatient (CLI) | payer MEDICARE, OTHER | END | disposition home or self-care (01) | LOC: LAB 16:48 | PROVIDERS: ATTEND Internal Medicine | DX: Z12.11 Encounter for screening for malignant neoplasm of colon (principal); I50.32 Chronic diastolic (congestive) heart failure; E55.9 Vitamin D deficiency, unspecified; N30.90 Cystitis, unspecified without hematuria | CPT/HCPCS: 82274 ==

== ENCOUNTER 2022-12-15 22:27 | Inpatient (IN) | payer OTHER ==
[~2022-12-15] VITALS: Ht 162.6 cm; Wt 110.3 kg
[~2022-12-15 22:27] MED LIST changes: +MELO-335 PO; -MELO1TAB56 PO
[2022-12-15] MEDS ORDERED: dilTIAZem 25 MG/5 ML VIAL IV ONE ×2 (22:31→22:45)
[2022-12-15 22:51] LABS: Hematocrit 37.1 % (36.0-46.0); Hemoglobin 12.6 g/dL (12.2-16.2); Mean Corpuscular Hemoglobin 30.4 pg (28.0-32.0); Mean Corpuscular Hgb Conc. 33.9 g/dL (32.0-36.0); Mean Corpuscular Volume 89.8 fL (80.0-100.0); Red Blood Cells 4.13 10^6/uL (4.0-5.20); Red Cell Distribution Width 14.9 % (11.8-14.3)
[2022-12-15 22:59] LABS: Band Neutrophils % (manual) 0; Basophils % (manual) 0 (0.0-2.0); Blast Cells 0; Eosinophils % (manual) 0 (0-7); Metamyelocytes % 0; Myelocytes % 0; Promyelocytes % 0; Reactive Lymphocytes 0
[2022-12-15 23:16] LABS: INR 1.26 (0.9-1.15); Partial Thromboplastin Time 32.6 sec (24.6-33.4)
[2022-12-15 23:19] LABS: Lymphocytes % (manual) 8 (10.0-50.0); Monocytes % (manual) 27 (0-12)
[2022-12-15 23:21] LABS: Albumin 2.5 g/dL (3.4-5.0); Calcium 7.7 mg/dL (8.5-10.1); Magnesium 1.6 mg/dL (1.6-2.6); Potassium 3.4 mmol/L (3.5-5.1)
[2022-12-15 23:26] LABS: BUN/Creatinine Ratio 8.6 (10.0-20.0); Bilirubin, Total 0.6 mg/dL (0.2-1.0); Total Protein 7.1 g/dL (6.4-8.2)
[2022-12-16] MEDS ORDERED: diphenhdrAMINE HCL 50 MG/1 ML VL IV ONE
[2022-12-16] MEDS ORDERED: DexAMETHasone SOD PHOS 10MG/1ML VIAL INJ IV ONE
[2022-12-16 00:37] LABS: Urine Bacteria FEW /hpf (None Seen); Urine Blood Negative /uL (Negative); Urine Specific Gravity 1.006 (1.001-1.035); Urine WBC 6 /hpf (0 - 5)
[2022-12-16] MEDS ORDERED: dilTIAZem 25 MG/5 ML VIAL IV ONE ×2 (02:40→02:45)
[2022-12-16] MEDS: SODIUM CHLORIDE 0.9% 1,000 ML IV SCH ×2 (03:15→20:25)
[2022-12-16] MEDS ORDERED: ONDANSETRON HCL 4 MG/2 ML VIAL IV PRN (03:15)
[2022-12-16] MEDS ORDERED: NITROGLYCERIN 0.4 MG SL TAB SL PRN (03:15)
[2022-12-16] MEDS ORDERED: dilTIAZem 125mg/125ml BAG KIT 125 ML IV ONE (03:15)
[2022-12-16] MEDS ORDERED: cefTRIAXone 1GM/50ML D5W 50 ML IV ONE (03:30)
[2022-12-16 05:25] LABS: Basophils # (auto) 0 10 ^3/uL (0-0.2); Basophils % (auto) 0.1 % (0.0-2.0); Eosinophils # (auto) 0 10 ^3/uL (0-0.8); Eosinophils % (auto) 0.1 % (0.0-7.0); Hematocrit 38.2 % (36.0-46.0); Lymphocytes # (auto) 0.6 10 ^3/uL (0.4-5.4); Lymphocytes % (auto) 3.9 % (10.0-50.0); Mean Corpuscular Hemoglobin 30.4 pg (28.0-32.0); Mean Corpuscular Volume 89.4 fL (80.0-100.0); Monocytes # (auto) 1.4 10 ^3/uL (0-1.3); Monocytes % (auto) 8.4 % (0.0-12.0); Neutrophils # (auto) 14.6 10 ^3/uL (1.6-8.6); Neutrophils % (auto) 87.5 % (37.0-80.0); Red Blood Cells 4.27 10^6/uL (4.0-5.20); White Blood Cell 16.6 10^3/uL (4.4-10.8)
[2022-12-16 05:55] LABS: Albumin 2.7 g/dL (3.4-5.0); BUN/Creatinine Ratio 10.9 (10.0-20.0); Bilirubin, Total 0.7 mg/dL (0.2-1.0); Calcium 8.4 mg/dL (8.5-10.1); Total Protein 8.5 g/dL (6.4-8.2)
[2022-12-16] MEDS ORDERED: IOHEXOL 350 MG/ML 100ML IJ ONE ×2 (06:16→13:39)
[2022-12-16 06:54] LABS: Potassium 2.7 mmol/L (3.5-5.1)
[2022-12-16] MEDS ORDERED: POTASSIUM CHL 20 Meq TABLET PO ONE (07:15)
[2022-12-16] MEDS ORDERED: POTASSIUM CHL 20MEQ/100ML 100 ML IV ONE (07:15)
[2022-12-16] MEDS: cefTRIAXone 1GM/50ML D5W 50 ML IV SCH (08:35)
[2022-12-16] MEDS: HYDROcodone-ACET 5/325MG TAB PO PRN ×4 (10:40→23:08)
[2022-12-16] MEDS: APIXABAN 5 MG TAB PO SCH ×2 (10:41→22:40)
[2022-12-16] MEDS: FAMOTIDINE (10MG/ML) 2ML VL IV SCH ×2 (10:41→22:40)
[2022-12-16] MEDS ORDERED: POTASSIUM EFFERVESENT TAB 25 MEQ PO ONE (13:45)
[2022-12-16] MEDS: ATORVASTATIN 20 MG TAB PO SCH (22:39)
[2022-12-16] MEDS: dilTIAZem HCL 60 MG TAB PO SCH (22:40)
[2022-12-17] VITALS (7 sets, daily range): BP systolic 137–156; BP diastolic 73–83
[2022-12-17 05:22] LABS: Albumin 2.4 g/dL (3.4-5.0); Calcium 8.7 mg/dL (8.5-10.1); Potassium 4.5 mmol/L (3.5-5.1)
[2022-12-17 05:25] LABS: BUN/Creatinine Ratio 21.9 (10.0-20.0); Bilirubin, Total 0.3 mg/dL (0.2-1.0)
[2022-12-17] MEDS: HYDROcodone-ACET 5/325MG TAB PO PRN ×4 (05:25→21:33)
[2022-12-17] MEDS: dilTIAZem HCL 60 MG TAB PO SCH ×2 (05:25→13:45)
[2022-12-17 05:32] LABS: Basophils # (auto) 0 10 ^3/uL (0-0.2); Basophils % (auto) 0.2 % (0.0-2.0); Eosinophils # (auto) 0 10 ^3/uL (0-0.8); Hematocrit 37.4 % (36.0-46.0); Hemoglobin 12.6 g/dL (12.2-16.2); Lymphocytes # (auto) 1.3 10 ^3/uL (0.4-5.4); Lymphocytes % (auto) 6.4 % (10.0-50.0); Mean Corpuscular Hgb Conc. 33.6 g/dL (32.0-36.0); Mean Corpuscular Volume 89.3 fL (80.0-100.0); Monocytes # (auto) 1.9 10 ^3/uL (0-1.3); Monocytes % (auto) 9.6 % (0.0-12.0); Neutrophils # (auto) 16.6 10 ^3/uL (1.6-8.6); Neutrophils % (auto) 83.8 % (37.0-80.0); Nucleated Red Blood Cells % 0.1 %; Red Blood Cells 4.19 10^6/uL (4.0-5.20); Red Cell Distribution Width 14.9 % (11.8-14.3); White Blood Cell 19.8 10^3/uL (4.4-10.8)
[2022-12-17] MEDS: cefTRIAXone 1GM/50ML D5W 50 ML IV SCH (09:10)
[2022-12-17] MEDS: APIXABAN 5 MG TAB PO SCH ×2 (09:10→21:32)
[2022-12-17] MEDS: FAMOTIDINE (10MG/ML) 2ML VL IV SCH ×2 (09:10→21:32)
[2022-12-17] MEDS: DOCUSATE SOD 100 MG CAP PO PRN (13:45)
[2022-12-17] MEDS ORDERED: PIPERACILLIN-TAZOB 3.375GM 100 ML IV SCH (14:00)
[2022-12-17] MEDS ORDERED: CLINDAMYCIN 600MG IV 50 ML IV SCH (14:00)
[2022-12-17] MEDS: SODIUM CHLORIDE 0.9% 1,000 ML IV SCH (15:37)
[2022-12-17] MEDS ORDERED: VANCOMYCIN PER PHARMACY 0 MG IV SCH (16:15)
[2022-12-17] MEDS ORDERED: dilTIAZem 120MG ER CAP PO ONE (16:30)
[2022-12-17] MEDS: VANCOMYCIN 1GM/250ML 250 ML IV SCH (17:07)
[2022-12-17] MEDS: QUEtiapine FUMARATE 25 MG TAB PO SCH (21:32)
[2022-12-17] MEDS: CEFEPIME 1GM/ 50ML 50 ML IV SCH (21:32)
[2022-12-17] MEDS: ATORVASTATIN 20 MG TAB PO SCH (21:32)
[2022-12-18] MEDS: HYDROcodone-ACET 5/325MG TAB PO PRN ×4 (01:28→20:59)
[2022-12-18 05:00] VITALS: BP 154/89
[2022-12-18] MEDS: CEFEPIME 1GM/ 50ML 50 ML IV SCH (05:50)
[2022-12-18 06:12] LABS: Basophils # (auto) 0 10 ^3/uL (0-0.2); Basophils % (auto) 0.2 % (0.0-2.0); Eosinophils # (auto) 0 10 ^3/uL (0-0.8); Eosinophils % (auto) 0.1 % (0.0-7.0); Hematocrit 34.9 % (36.0-46.0); Hemoglobin 11.6 g/dL (12.2-16.2); Lymphocytes # (auto) 1.7 10 ^3/uL (0.4-5.4); Lymphocytes % (auto) 10.5 % (10.0-50.0); Mean Corpuscular Hgb Conc. 33.3 g/dL (32.0-36.0); Mean Corpuscular Volume 90.1 fL (80.0-100.0); Monocytes # (auto) 1.6 10 ^3/uL (0-1.3); Monocytes % (auto) 9.4 % (0.0-12.0); Neutrophils # (auto) 13.2 10 ^3/uL (1.6-8.6); Neutrophils % (auto) 79.8 % (37.0-80.0); Red Blood Cells 3.87 10^6/uL (4.0-5.20); Red Cell Distribution Width 14.9 % (11.8-14.3); White Blood Cell 16.6 10^3/uL (4.4-10.8)
[2022-12-18 06:25] LABS: Potassium 3.4 mmol/L (3.5-5.1)
[2022-12-18 06:34] LABS: Albumin 2.2 g/dL (3.4-5.0); BUN/Creatinine Ratio 25.8 (10.0-20.0); Bilirubin, Total 0.2 mg/dL (0.2-1.0); Calcium 8.2 mg/dL (8.5-10.1); Total Protein 6.8 g/dL (6.4-8.2)
[2022-12-18] MEDS: SODIUM CHLORIDE 0.9% 1,000 ML IV SCH (06:43)
[2022-12-18 08:15] VITALS: BP 136/77
[2022-12-18] MEDS ORDERED: ADENOSINE 89 MG in GIVE UN-DILUTED 0 ML IV STA (08:30)
[2022-12-18] MEDS: APIXABAN 5 MG TAB PO SCH ×2 (09:04→21:46)
[2022-12-18] MEDS: FAMOTIDINE (10MG/ML) 2ML VL IV SCH (09:05)
[2022-12-18] MEDS: dilTIAZem 120MG ER CAP PO SCH (10:00)
[2022-12-18 10:04] VITALS: BP 126/71
[2022-12-18] MEDS: VANCOMYCIN 1GM/250ML 250 ML IV SCH (11:17)
[2022-12-18] MEDS ORDERED: POTASSIUM CHL 20 Meq TABLET PO ONE (12:00)
[2022-12-18] MEDS ORDERED: MORPHINE SULF 30 mg ER tab PO ONE (12:00)
[2022-12-18 12:15] VITALS: BP 123/70
[2022-12-18] MEDS: CEPHALEXIN 250 MG CAP PO SCH ×2 (13:29→21:44)
[2022-12-18 16:10] VITALS: BP 121/75
[2022-12-18] MEDS: QUEtiapine FUMARATE 25 MG TAB PO SCH (21:45)
[2022-12-18] MEDS: ATORVASTATIN 20 MG TAB PO SCH (21:45)
[2022-12-18] MEDS: MORPHINE SULF 30 mg ER tab PO SCH (21:45)
[2022-12-19 00:47] VITALS: BP 128/65
[2022-12-19] MEDS: HYDROcodone-ACET 5/325MG TAB PO PRN ×4 (00:53→23:35)
[2022-12-19] MEDS: CEPHALEXIN 250 MG CAP PO SCH ×2 (05:19→13:37)
[2022-12-19 05:27] VITALS: BP 131/75
[2022-12-19 06:18] LABS: Hematocrit 35.5 % (36.0-46.0); Hemoglobin 11.9 g/dL (12.2-16.2); Mean Corpuscular Hemoglobin 30.7 pg (28.0-32.0); Mean Corpuscular Hgb Conc. 33.5 g/dL (32.0-36.0); Mean Corpuscular Volume 91.7 fL (80.0-100.0); Red Blood Cells 3.87 10^6/uL (4.0-5.20); Red Cell Distribution Width 15.1 % (11.8-14.3); White Blood Cell 16.2 10^3/uL (4.4-10.8)
[2022-12-19 06:21] LABS: Band Neutrophils % (manual) 0; Basophils % (manual) 0 (0.0-2.0); Blast Cells 0; Eosinophils % (manual) 0 (0-7); Metamyelocytes % 0; Myelocytes % 0; Promyelocytes % 0; Reactive Lymphocytes 0
[2022-12-19 06:26] LABS: Potassium 4.3 mmol/L (3.5-5.1)
[2022-12-19 06:32] LABS: BUN/Creatinine Ratio 29.6 (10.0-20.0); Calcium 8.3 mg/dL (8.5-10.1)
[2022-12-19 07:39] LABS: Lymphocytes % (manual) 20 (10.0-50.0); Monocytes % (manual) 13 (0-12)
[2022-12-19] MEDS: APIXABAN 5 MG TAB PO SCH (08:42)
[2022-12-19] MEDS: MORPHINE SULF 30 mg ER tab PO SCH ×2 (08:42→21:29)
[2022-12-19] MEDS: dilTIAZem 120MG ER CAP PO SCH (08:42)
[2022-12-19 09:00] VITALS: BP 125/96
[2022-12-19 12:37] VITALS: BP 125/71
[2022-12-19] MEDS ORDERED: cefTRIAXone 1GM/50ML D5W 50 ML IV ONE (15:15)
[2022-12-19 16:58] VITALS: BP 108/58
[2022-12-19] MEDS: QUEtiapine FUMARATE 25 MG TAB PO SCH (21:29)
[2022-12-19] MEDS: ATORVASTATIN 20 MG TAB PO SCH (21:29)
[2022-12-19] MEDS: metroNIDAZOLE 500MG/100ML 100 ML IV SCH (21:29)
[2022-12-19 22:00] VITALS: BP 125/76
[2022-12-20] VITALS (8 sets, daily range): BP systolic 106–126; BP diastolic 51–83
[2022-12-20] MEDS: HYDROcodone-ACET 5/325MG TAB PO PRN ×2 (03:25→23:15)
[2022-12-20] MEDS: metroNIDAZOLE 500MG/100ML 100 ML IV SCH ×3 (06:00→23:15)
[2022-12-20 06:16] LABS: Hematocrit 35.9 % (36.0-46.0); Hemoglobin 12.1 g/dL (12.2-16.2); Mean Corpuscular Hemoglobin 30.7 pg (28.0-32.0); Mean Corpuscular Hgb Conc. 33.7 g/dL (32.0-36.0); Mean Corpuscular Volume 91.1 fL (80.0-100.0); Red Blood Cells 3.94 10^6/uL (4.0-5.20); Red Cell Distribution Width 15.3 % (11.8-14.3); White Blood Cell 25.4 10^3/uL (4.4-10.8)
[2022-12-20] MEDS ORDERED: dilTIAZem 25 MG/5 ML VIAL IV ONE (06:30)
[2022-12-20 06:37] LABS: Basophils % (manual) 0 (0.0-2.0); Blast Cells 0; Eosinophils % (manual) 0 (0-7); Metamyelocytes % 0; Myelocytes % 0; Potassium 4.6 mmol/L (3.5-5.1); Promyelocytes % 0; Reactive Lymphocytes 0
[2022-12-20 06:42] LABS: Albumin 2.2 g/dL (3.4-5.0); BUN/Creatinine Ratio 26.6 (10.0-20.0); Bilirubin, Total 0.5 mg/dL (0.2-1.0); Calcium 8.1 mg/dL (8.5-10.1); Total Protein 7.1 g/dL (6.4-8.2)
[2022-12-20] MEDS ORDERED: AMIODARONE HCL 150 MG in D5W 5% 100 ML IV ONE (06:45)
[2022-12-20] MEDS ORDERED: AMIODARONE 450mg/250ml AE 250 ML IV SCH (07:00)
[2022-12-20] MEDS: ACETAMINOPHEN 325 MG TAB PO PRN (08:18)
[2022-12-20] MEDS ORDERED: metroNIDAZOLE 500MG/100ML 100 ML IV ONE (08:30)
[2022-12-20 08:58] LABS: Band Neutrophils % (manual) 3; Lymphocytes % (manual) 6 (10.0-50.0); Monocytes % (manual) 27 (0-12)
[2022-12-20] MEDS ORDERED: cefTRIAXone 1GM/50ML D5W 50 ML IV SCH (09:00)
[2022-12-20] MEDS: MORPHINE SULF 30 mg ER tab PO SCH (10:41)
[2022-12-20] MEDS: dilTIAZem 120MG ER CAP PO SCH (10:42)
[2022-12-20] MEDS: SODIUM CHLORIDE 0.9% 1,000 ML IV SCH (11:30)
[2022-12-20] MEDS ORDERED: PANTOPRAZOLE 40 MG/10 ML VIAL INJ IV ONE (11:30)
[2022-12-20] MEDS ORDERED: PIPERACILLIN-TAZOB 3.375GM 100 ML IV ONE (11:30)
[2022-12-20] MEDS: PIPERACILLIN-TAZOB 3.375GM 100 ML IV SCH ×2 (12:53→21:22)
[2022-12-20] MEDS ORDERED: DIGOXIN (250MCG/ML) 2 ML AMPULE IV SCH (13:45)
[2022-12-20] MEDS: AMIODARONE 450mg/250ml AE 250 ML IV SCH (14:44)
[2022-12-20] MEDS: MORPHINE SULFATE INJ 2 MG/ml SYRG IV PRN (20:55)
[2022-12-21] VITALS (37 sets, daily range): BP systolic 88–150; BP diastolic 40–144
[2022-12-21] MEDS: SODIUM CHLORIDE 0.9% 1,000 ML IV SCH (02:55)
[2022-12-21] MEDS: MORPHINE SULFATE INJ 2 MG/ml SYRG IV PRN (05:31)
[2022-12-21] MEDS: metroNIDAZOLE 500MG/100ML 100 ML IV SCH ×3 (05:31→22:09)
[2022-12-21] MEDS: PIPERACILLIN-TAZOB 3.375GM 100 ML IV SCH (05:43)
[2022-12-21] MEDS ORDERED: BUPIVACAINE HCL 0 ML ONE (06:44)
[2022-12-21] MEDS ORDERED: LIDOCAINE W/ EPINEPHRINE 1% 20ML VIAL ONE (06:57)
[2022-12-21] MEDS ORDERED: BUPIVACAINE 0.5% P/F INJ 10 ML VIAL ONE (06:57)
[2022-12-21 07:06] LABS: Albumin 2.2 g/dL (3.4-5.0)
[2022-12-21] MEDS ORDERED: MIDAZOLAM HCL 2MG/2ML 2ml VIAL (1mg/ml) ONE (07:07)
[2022-12-21] MEDS ORDERED: SODIUM CHLORIDE LOCK 20 ML ONE (07:07)
[2022-12-21] MEDS ORDERED: DexAMETHasone SOD PHOS 10MG/1ML VIAL INJ ONE (07:07)
[2022-12-21] MEDS ORDERED: MORPHINE SULF PF 5 MG/10 ML VIAL ONE (07:07)
[2022-12-21] MEDS ORDERED: ETOMIDATE (2MG/ML) 20ML VIAL IV ONE (07:07)
[2022-12-21] MEDS ORDERED: GLYCOPYRROLATE 0.2 MG/ML 1ML VIAL ONE (07:07)
[2022-12-21] MEDS ORDERED: NEOSTIGMINE 1 MG/ML INJ (10mg/10ML VIAL) ONE (07:07)
[2022-12-21] MEDS ORDERED: fentaNYL CITRATE 100 MCG/2 ML VL ONE (07:07)
[2022-12-21 07:08] LABS: Hematocrit 35.1 % (36.0-46.0); Hemoglobin 11.4 g/dL (12.2-16.2); Mean Corpuscular Hemoglobin 29.3 pg (28.0-32.0); Mean Corpuscular Hgb Conc. 32.5 g/dL (32.0-36.0); Mean Corpuscular Volume 90.2 fL (80.0-100.0); Red Blood Cells 3.89 10^6/uL (4.0-5.20); Red Cell Distribution Width 15.2 % (11.8-14.3)
[2022-12-21 07:10] LABS: BUN/Creatinine Ratio 19.5 (10.0-20.0); Bilirubin, Total 0.8 mg/dL (0.2-1.0); Total Protein 6.2 g/dL (6.4-8.2)
[2022-12-21] MEDS: AMIODARONE 450mg/250ml AE 250 ML IV SCH (07:28)
[2022-12-21 07:30] LABS: Basophils % (manual) 0 (0.0-2.0); Blast Cells 0; Eosinophils % (manual) 0 (0-7); Myelocytes % 0; Promyelocytes % 0; Reactive Lymphocytes 0
[2022-12-21] MEDS ORDERED: MORPHINE SULFATE INJ 2 MG/ml SYRG IV PRN (07:30)
[2022-12-21] MEDS ORDERED: METOCLOPRAMIDE HCL 5MG/ml INJ 2ml VIAL IV PRN (07:30)
[2022-12-21] MEDS ORDERED: HYDROmorphone HCL 2 MG/ML VL/or syr IV PRN (07:30)
[2022-12-21 07:52] LABS: INR 1.41 (0.9-1.15); Partial Thromboplastin Time 36.9 sec (24.6-33.4)
[2022-12-21] MEDS ORDERED: LIDOCAINE 1% HCL (LOCAL ANESTH.) INJ 20ML MDV ONE (07:52)
[2022-12-21] MEDS ORDERED: METOPROLOL TARTRATE 1MG/1ML-5ML VIAL IV ONE (08:32)
[2022-12-21 09:12] LABS: Band Neutrophils % (manual) 11; Lymphocytes % (manual) 5 (10.0-50.0); Metamyelocytes % 1; Monocytes % (manual) 8 (0-12)
[2022-12-21] MEDS: HYDROmorphone HCL 2 MG/ML VL/or syr IV PRN ×4 (09:42→10:19)
[2022-12-21] MEDS: HYDROcodone-ACET 5/325MG TAB PO PRN ×2 (11:06→16:19)
[2022-12-21] MEDS: D5W/ SOD CHL 0.9%/KCL 20MEQ 1,000 ML IV SCH ×2 (15:39→22:35)
[2022-12-21] MEDS ORDERED: ROCURONIUM 10MG/ML 10ML VIAL IV ONE (16:31)
[2022-12-21] MEDS ORDERED: SUCCINYLCHOLINE CHLORIDE 20 MG/ML 10ML VIAL IV ONE (16:31)
[2022-12-22] VITALS (53 sets, daily range): BP systolic 80–160; BP diastolic 52–98
[2022-12-22] MEDS: HYDROcodone-ACET 5/325MG TAB PO PRN ×3 (00:24→20:04)
[2022-12-22] MEDS: MORPHINE SULFATE INJ 2 MG/ml SYRG IV PRN ×3 (01:34→23:30)
[2022-12-22 04:44] LABS: Red Cell Distribution Width 15.3 % (11.8-14.3)
[2022-12-22 04:49] LABS: Hematocrit 31.8 % (36.0-46.0); Hemoglobin 10.7 g/dL (12.2-16.2); Mean Corpuscular Hemoglobin 30.4 pg (28.0-32.0); Mean Corpuscular Hgb Conc. 33.6 g/dL (32.0-36.0); Mean Corpuscular Volume 90.5 fL (80.0-100.0); Red Blood Cells 3.51 10^6/uL (4.0-5.20)
[2022-12-22 04:52] LABS: White Blood Cell 41.3 10^3/uL (4.4-10.8)
[2022-12-22 04:53] LABS: Band Neutrophils % (manual) 0; Basophils % (manual) 0 (0.0-2.0); Blast Cells 0; Eosinophils % (manual) 0 (0-7); Metamyelocytes % 0; Myelocytes % 0; Promyelocytes % 0; Reactive Lymphocytes 0
[2022-12-22 05:23] LABS: Albumin 1.7 g/dL (3.4-5.0); Calcium 8.3 mg/dL (8.5-10.1); Potassium 4.5 mmol/L (3.5-5.1)
[2022-12-22 05:25] LABS: Bilirubin, Total 0.3 mg/dL (0.2-1.0); Total Protein 6.4 g/dL (6.4-8.2)
[2022-12-22] MEDS: metroNIDAZOLE 500MG/100ML 100 ML IV SCH ×3 (06:22→22:00)
[2022-12-22 06:25] LABS: Lymphocytes % (manual) 2 (10.0-50.0); Monocytes % (manual) 16 (0-12)
[2022-12-22] MEDS: PANTOPRAZOLE 40 MG/10 ML VIAL INJ IV SCH ×2 (10:13→10:15)
[2022-12-22] MEDS: dilTIAZem 120MG ER CAP PO SCH ×2 (10:16→10:20)
[2022-12-22] MEDS: PIPERACILLIN-TAZOB 3.375GM 100 ML IV SCH ×3 (12:18→20:15)
[2022-12-22] MEDS: DOCUSATE SOD 100 MG CAP PO PRN (12:18)
[2022-12-22] MEDS: SODIUM CHLORIDE 0.9% 1,000 ML IV SCH (12:23)
[2022-12-22] MEDS: Ensure HIGH Protein Chocolate 8oz Bottle PO SCH ×2 (12:56→18:00)
[2022-12-23] MEDS: SODIUM CHLORIDE 0.9% 1,000 ML IV SCH ×2 (00:20→16:35)
[2022-12-23] MEDS: HYDROcodone-ACET 5/325MG TAB PO PRN ×2 (00:30→04:39)
[2022-12-23] MEDS: PIPERACILLIN-TAZOB 3.375GM 100 ML IV SCH ×3 (04:38→22:30)
[2022-12-23 05:00] VITALS: BP 164/89
[2022-12-23] MEDS: metroNIDAZOLE 500MG/100ML 100 ML IV SCH ×2 (05:51→16:34)
[2022-12-23 06:05] LABS: Hemoglobin 10.8 g/dL (12.2-16.2); Mean Corpuscular Hemoglobin 29.8 pg (28.0-32.0); Red Cell Distribution Width 15.3 % (11.8-14.3)
[2022-12-23 06:07] LABS: Hematocrit 32.4 % (36.0-46.0); Mean Corpuscular Hgb Conc. 33.3 g/dL (32.0-36.0); Mean Corpuscular Volume 89.6 fL (80.0-100.0); Red Blood Cells 3.61 10^6/uL (4.0-5.20)
[2022-12-23 06:10] LABS: White Blood Cell 32.6 10^3/uL (4.4-10.8)
[2022-12-23 06:12] LABS: Basophils % (manual) 0 (0.0-2.0); Blast Cells 0; Eosinophils % (manual) 0 (0-7); Metamyelocytes % 0; Myelocytes % 0; Promyelocytes % 0; Reactive Lymphocytes 0
[2022-12-23 06:20] LABS: Albumin 1.8 g/dL (3.4-5.0); Calcium 8.6 mg/dL (8.5-10.1); Potassium 4.7 mmol/L (3.5-5.1)
[2022-12-23 06:23] LABS: BUN/Creatinine Ratio 38.3 (10.0-20.0)
[2022-12-23 06:25] LABS: Bilirubin, Total 0.4 mg/dL (0.2-1.0); Total Protein 6.6 g/dL (6.4-8.2)
[2022-12-23 09:00] VITALS: BP 158/91
[2022-12-23 09:09] LABS: Band Neutrophils % (manual) 2; Lymphocytes % (manual) 5 (10.0-50.0); Monocytes % (manual) 7 (0-12)
[2022-12-23] MEDS: PANTOPRAZOLE 40 MG/10 ML VIAL INJ IV SCH (11:16)
[2022-12-23] MEDS: dilTIAZem 120MG ER CAP PO SCH (11:17)
[2022-12-23] MEDS: Ensure HIGH Protein Chocolate 8oz Bottle PO SCH ×3 (11:17→16:35)
[2022-12-23] MEDS: MORPHINE SULFATE INJ 2 MG/ml SYRG IV PRN ×2 (12:06→17:04)
[2022-12-23 13:00] VITALS: BP 146/84
[2022-12-23 17:00] VITALS: BP 126/64
[2022-12-23 22:00] VITALS: BP 136/79
[2022-12-24] MEDS: SODIUM CHLORIDE 0.9% 1,000 ML IV SCH ×4 (03:00→21:40)
[2022-12-24] MEDS: HYDROcodone-ACET 5/325MG TAB PO PRN ×5 (03:46→21:20)
[2022-12-24] MEDS: metroNIDAZOLE 500MG/100ML 100 ML IV SCH ×3 (03:53→14:35)
[2022-12-24] MEDS: MORPHINE SULFATE INJ 2 MG/ml SYRG IV PRN (05:04)
[2022-12-24] MEDS: PIPERACILLIN-TAZOB 3.375GM 100 ML IV SCH ×3 (05:15→21:35)
[2022-12-24 05:28] VITALS: BP 159/74
[2022-12-24 06:49] LABS: Hematocrit 32.7 % (36.0-46.0); Hemoglobin 11.2 g/dL (12.2-16.2); Mean Corpuscular Hemoglobin 30.5 pg (28.0-32.0); Mean Corpuscular Hgb Conc. 34.1 g/dL (32.0-36.0); Mean Corpuscular Volume 89.5 fL (80.0-100.0); Red Blood Cells 3.65 10^6/uL (4.0-5.20); Red Cell Distribution Width 15.2 % (11.8-14.3)
[2022-12-24 06:56] LABS: Basophils % (manual) 0 (0.0-2.0); Blast Cells 0; Eosinophils % (manual) 0 (0-7); Metamyelocytes % 0; Myelocytes % 0; Promyelocytes % 0; Reactive Lymphocytes 0
[2022-12-24 07:52] LABS: BUN/Creatinine Ratio 30.4 (10.0-20.0); Calcium 8.2 mg/dL (8.5-10.1); Potassium 4.4 mmol/L (3.5-5.1)
[2022-12-24] MEDS: Ensure HIGH Protein Chocolate 8oz Bottle PO SCH ×3 (08:00→18:06)
[2022-12-24 09:00] VITALS: BP 130/48
[2022-12-24] MEDS: dilTIAZem 120MG ER CAP PO SCH (10:09)
[2022-12-24] MEDS: DOCUSATE SOD 100 MG CAP PO PRN (10:10)
[2022-12-24] MEDS: PANTOPRAZOLE 40 MG/10 ML VIAL INJ IV SCH (10:10)
[2022-12-24 13:06] LABS: Band Neutrophils % (manual) 3; Lymphocytes % (manual) 4 (10.0-50.0); Monocytes % (manual) 19 (0-12)
[2022-12-24 17:00] VITALS: BP 116/60
[2022-12-24] MEDS: ZOLPIDEM TARTRATE 5 MG TAB PO PRN (21:32)
[2022-12-24 22:00] VITALS: BP 125/55
[2022-12-25] MEDS: metroNIDAZOLE 500MG/100ML 100 ML IV SCH ×2 (01:52→08:55)
[2022-12-25] MEDS: PIPERACILLIN-TAZOB 3.375GM 100 ML IV SCH ×3 (03:59→20:33)
[2022-12-25 05:00] VITALS: BP 121/79
[2022-12-25] MEDS: MORPHINE SULFATE INJ 2 MG/ml SYRG IV PRN ×2 (06:32→20:32)
[2022-12-25] MEDS: Ensure HIGH Protein Chocolate 8oz Bottle PO SCH ×3 (08:00→18:00)
[2022-12-25 09:00] VITALS: BP 124/58
[2022-12-25] MEDS: PANTOPRAZOLE 40 MG/10 ML VIAL INJ IV SCH (09:54)
[2022-12-25] MEDS: dilTIAZem 120MG ER CAP PO SCH (09:55)
[2022-12-25 13:00] VITALS: BP 138/62
[2022-12-25] MEDS ORDERED: dilTIAZem 25 MG/5 ML VIAL IV ONE (13:15)
[2022-12-25 17:00] VITALS: BP 127/71
[2022-12-25 22:00] VITALS: BP 110/54
[2022-12-25] MEDS: ZOLPIDEM TARTRATE 5 MG TAB PO PRN (23:01)
[2022-12-26] MEDS: MORPHINE SULFATE INJ 2 MG/ml SYRG IV PRN ×4 (01:49→20:39)
[2022-12-26] MEDS: PIPERACILLIN-TAZOB 3.375GM 100 ML IV SCH ×3 (04:15→19:57)
[2022-12-26 05:00] VITALS: BP 117/67
[2022-12-26 05:46] LABS: Hematocrit 29.6 % (36.0-46.0); Hemoglobin 9.9 g/dL (12.2-16.2); Mean Corpuscular Hgb Conc. 33.4 g/dL (32.0-36.0); Mean Corpuscular Volume 89.7 fL (80.0-100.0); Red Cell Distribution Width 15.8 % (11.8-14.3); White Blood Cell 29.3 10^3/uL (4.4-10.8)
[2022-12-26 05:48] LABS: Basophils % (manual) 0 (0.0-2.0); Blast Cells 0; Eosinophils % (manual) 0 (0-7); Metamyelocytes % 0; Myelocytes % 0; Promyelocytes % 0; Reactive Lymphocytes 0
[2022-12-26 05:59] LABS: Potassium 4.3 mmol/L (3.5-5.1)
[2022-12-26 06:06] LABS: Albumin 1.9 g/dL (3.4-5.0); BUN/Creatinine Ratio 14.8 (10.0-20.0); Bilirubin, Total 0.6 mg/dL (0.2-1.0); Calcium 8.1 mg/dL (8.5-10.1); Total Protein 6.4 g/dL (6.4-8.2)
[2022-12-26 07:28] LABS: Band Neutrophils % (manual) 8; Lymphocytes % (manual) 22 (10.0-50.0); Monocytes % (manual) 4 (0-12)
[2022-12-26] MEDS: Ensure HIGH Protein Chocolate 8oz Bottle PO SCH ×3 (08:00→16:38)
[2022-12-26] MEDS: PANTOPRAZOLE 40 MG/10 ML VIAL INJ IV SCH (10:22)
[2022-12-26] MEDS: dilTIAZem 120MG ER CAP PO SCH ×2 (10:23→21:41)
[2022-12-26 13:40] VITALS: BP 125/75
[2022-12-26 15:56] VITALS: BP 130/80
[2022-12-26] MEDS: metroNIDAZOLE 500MG/100ML 100 ML IV SCH ×2 (17:02→21:41)
[2022-12-26 22:00] VITALS: BP 121/73
[2022-12-27] MEDS: PIPERACILLIN-TAZOB 3.375GM 100 ML IV SCH ×4 (03:47→23:00)
[2022-12-27 05:00] VITALS: BP 93/51
[2022-12-27] MEDS: metroNIDAZOLE 500MG/100ML 100 ML IV SCH ×3 (05:22→22:00)
[2022-12-27 07:16] LABS: Hematocrit 29.6 % (36.0-46.0); Hemoglobin 9.9 g/dL (12.2-16.2); Mean Corpuscular Hemoglobin 30.1 pg (28.0-32.0); Mean Corpuscular Hgb Conc. 33.4 g/dL (32.0-36.0); Mean Corpuscular Volume 90.2 fL (80.0-100.0); Red Blood Cells 3.28 10^6/uL (4.0-5.20); Red Cell Distribution Width 15.9 % (11.8-14.3); White Blood Cell 27.2 10^3/uL (4.4-10.8)
[2022-12-27 07:17] LABS: Calcium 8.3 mg/dL (8.5-10.1)
[2022-12-27 07:21] LABS: BUN/Creatinine Ratio 15.9 (10.0-20.0)
[2022-12-27 07:24] LABS: Basophils % (manual) 0 (0.0-2.0); Blast Cells 0; Eosinophils % (manual) 0 (0-7); Promyelocytes % 0; Reactive Lymphocytes 0
[2022-12-27] MEDS: Ensure HIGH Protein Chocolate 8oz Bottle PO SCH ×3 (07:50→18:13)
[2022-12-27] MEDS: MORPHINE SULFATE INJ 2 MG/ml SYRG IV PRN ×4 (08:36→22:40)
[2022-12-27] MEDS: PANTOPRAZOLE 40 MG/10 ML VIAL INJ IV SCH (08:40)
[2022-12-27 09:05] VITALS: BP 121/62
[2022-12-27] MEDS: dilTIAZem 120MG ER CAP PO SCH ×2 (09:34→21:32)
[2022-12-27 12:54] LABS: Band Neutrophils % (manual) 5; Lymphocytes % (manual) 4 (10.0-50.0); Metamyelocytes % 2; Monocytes % (manual) 15 (0-12); Myelocytes % 1
[2022-12-27] MEDS: ACETAMINOPHEN 325 MG TAB PO PRN (15:29)
[2022-12-27 16:34] VITALS: BP 119/56
[2022-12-27 22:00] VITALS: BP 127/76
[2022-12-28] MEDS: MORPHINE SULFATE INJ 2 MG/ml SYRG IV PRN ×3 (02:39→14:10)
[2022-12-28 05:00] VITALS: BP 140/67
[2022-12-28 05:48] LABS: Hematocrit 29.7 % (36.0-46.0); Mean Corpuscular Hemoglobin 30.1 pg (28.0-32.0); Mean Corpuscular Hgb Conc. 33.7 g/dL (32.0-36.0); Mean Corpuscular Volume 89.3 fL (80.0-100.0); Red Blood Cells 3.33 10^6/uL (4.0-5.20); Red Cell Distribution Width 15.5 % (11.8-14.3); White Blood Cell 23.6 10^3/uL (4.4-10.8)
[2022-12-28 05:50] LABS: Albumin 2.1 g/dL (3.4-5.0); Calcium 8.3 mg/dL (8.5-10.1); Potassium 4.5 mmol/L (3.5-5.1)
[2022-12-28 05:52] LABS: Basophils % (manual) 0 (0.0-2.0); Blast Cells 0; Eosinophils % (manual) 0 (0-7); Metamyelocytes % 0; Myelocytes % 0; Promyelocytes % 0; Reactive Lymphocytes 0
[2022-12-28 05:53] LABS: BUN/Creatinine Ratio 18.5 (10.0-20.0); Bilirubin, Total 0.6 mg/dL (0.2-1.0); Total Protein 7.4 g/dL (6.4-8.2)
[2022-12-28] MEDS: metroNIDAZOLE 500MG/100ML 100 ML IV SCH (05:56)
[2022-12-28 07:52] LABS: Band Neutrophils % (manual) 2; Lymphocytes % (manual) 4 (10.0-50.0); Monocytes % (manual) 24 (0-12)
[2022-12-28 09:24] VITALS: BP 118/77
[2022-12-28] MEDS: Ensure HIGH Protein Chocolate 8oz Bottle PO SCH ×3 (09:40→18:00)
[2022-12-28] MEDS: dilTIAZem 120MG ER CAP PO SCH (09:40)
[2022-12-28] MEDS ORDERED: PANTOPRAZOLE 40 MG TAB PO SCH (10:00)
[2022-12-28] MEDS: PIPERACILLIN-TAZOB 3.375GM 100 ML IV SCH (11:25)
[2022-12-28 12:00] VITALS: BP 138/71
[2022-12-28] MEDS ORDERED: metroNIDAZOLE 500 MG TAB PO SCH (14:00)
[2022-12-28 17:00] VITALS: BP 125/70
[2022-12-28 18:24] VITALS: BP 118/77
== END 2022-12-28 20:35 | disposition hospice, home (50) | DRG 854 ==
LOC: ER 22:27 → EDBD 22:27 → TELE 12-16 03:24 → TELE-WESTW 12-16 23:37 → DOU IN ICU 12-21 14:29 → TELE-EAST 12-22 15:37
PROVIDERS: ADMIT Nurse Practitioner Family; ATTEND Internal Medicine
PROC: 0FT44ZZ Resection of Gallbladder, Percutaneous Endoscopic Approach (ICD-10-PCS; principal; 2022-12-21 07:52)
DX: A41.9 Sepsis, unspecified organism (principal); C23 Malignant neoplasm of gallbladder; E46 Unspecified protein-calorie malnutrition; I50.32 Chronic diastolic (congestive) heart failure; N39.0 Urinary tract infection, site not specified; D68.59 Other primary thrombophilia; K80.00 Calculus of gallbladder with acute cholecystitis without obstruction; E66.01 Morbid (severe) obesity due to excess calories; E87.6 Hypokalemia; H91.90 Unspecified hearing loss, unspecified ear; R79.89 Other specified abnormal findings of blood chemistry; I11.0 Hypertensive heart disease with heart failure; I48.91 Unspecified atrial fibrillation; K21.9 Gastro-esophageal reflux disease without esophagitis; Z79.01 Long term (current) use of anticoagulants; Z91.041 Radiographic dye allergy status; Z51.5 Encounter for palliative care; Z82.49 Family history of ischemic heart disease and other diseases of the circulatory system; Z87.442 Personal history of urinary calculi; Z90.710 Acquired absence of both cervix and uterus; Z68.39 Body mass index [BMI] 39.0-39.9, adult
CPT/HCPCS: 36415; 71045; 74176; 76705; 78452; 80048; 80053; 81001; 82962; 83605; 83690; 83735; 83880; 84484; 85007; 85025; 85027; 85379; 85610; 85652; 85730; 86850; 86900; 86901; 87040; 87070; 87075; 87081; 87086; 87205; 93005; 93017; 93970; 96365; 96375; 97110; 97116; 97163; 97530; 99291; C9113; G0378; J0153; J0330; J0696; J1100; J2001; J2250; J2405; J2543; J3480; J3490; J7060